=== PATIENT | female | born 1975 | race Caucasian/White ===

== ENCOUNTER 2024-09-08 02:31 | Emergency (ER) | payer MEDICARE, MEDICAID, SELFPAY ==
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
[2024-09-08 03:06] VITALS: BP 135/85; PULSE 92; RESP 20; TEMP 36.6; O2SAT 97; BMI 26.4
[2024-09-08 03:48] VITALS: BP 138/89; PULSE 90; O2SAT 96
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
[2024-09-08 04:07] VITALS: RESP 22; O2SAT 95
[2024-09-08] MEDS: morphine 4 mg/mL SDV 1 mL IVP (04:07)
[2024-09-08] MEDS: ondansetron 2 mg/ML SDV 2 mL 4 MG IVP (04:07)
[2024-09-08 04:22] VITALS: BP 131/86; PULSE 92; RESP 16; O2SAT 97
[2024-09-08] MEDS: tetanus-dipt-pertussis 0.5 mL SDV IM (04:50)
[2024-09-08 05:02] VITALS: BP 133/80; PULSE 100; O2SAT 92
[2024-09-08 06:17] VITALS: BP 133/81; PULSE 101; O2SAT 97
== END 2024-09-08 06:02 | disposition home or self-care (01) ==
PROVIDERS: Emergency Provider Emergency Medicine
DX: S30.1XXA Contusion of abdominal wall, initial encounter (principal); S13.4XXA Sprain of ligaments of cervical spine, initial encounter; S00.03XA Contusion of scalp, initial encounter; V89.2XXA Person injured in unspecified motor-vehicle accident, traffic, initial encounter
CPT/HCPCS: 70450; 71250; 72125; 73130; 74176; 90471; 90715; 96374; 96375; 99285; J2270; J2405